=== PATIENT | female | born 1975 | race Caucasian/White ===

== ENCOUNTER 2016-05-18 00:35 | Emergency (ER) | payer MEDICARE, MEDICAID ==
--- NOTE | 2016-05-18 00:55 | EDPRACDOC ---
- General Information Chief Complaint: Chest Pain Stated Complaint: CHEST PAIN Time Seen by Provider: 05/18/16 00:47 Home Medications: Home Medications Acyclovir 800 mg PO DAILY 08/28/14 Acyclovir 800 mg PO 5XD #35 02/19/15 Albuterol Sulfate 1.25 mg NEB DIR PRN 02/19/15 Acyclovir 800 mg PO 5XD #35 tablet 09/23/15 Mouthwash [Magic Mouthwash] 5 ml PO Q6 #180 ml 09/23/15 Nebulizer [Erapid Nebulizer] 1 each MC .UNKNOWN 09/23/15 Nystatin 2 ml PO QID 09/23/15 Acyclovir 800 mg PO 5XD #35 tablet 03/17/16 Oxycodone Immediate Release [Oxycodone Immediate Release (OxyIR)] 5 mg PO Q6H PRN #14 tab 03/17/16 Fluconazole [Diflucan] 150 mg PO DAILY #3 tab 05/18/16 Hydrocodone Bit/Acetaminophen [Hydrocodon-Acetaminophen 5-325] 1 tab PO Q6 PRN # 15 tab 05/18/16 Allergies/Adverse Reactions: Allergies Allergy/AdvReac Type Severity Reaction Status Date / Time carisoprodol [From Soma] Allergy Severe See Verified 09/23/15 19:08 Comments codeine Allergy Severe See Verified 09/23/15 19:08 Comments morphine Allergy Severe Hives* Verified 09/23/15 19:08 Penicillins Allergy Severe Hives* Verified 09/23/15 19:08 egg Allergy See Verified 09/23/15 19:08 Comments prednisone Allergy See Verified 09/23/15 19:08 Comments - History of Present Illness Onset: "EARLIER TODAY" HPI: PT STATES THAT SHE NOTICED "PAIN" IN HER THROAT AFTER USING BREO INHALER EARLIER TODAY, STATES THAT WHEN SHE WENT TO BED SHE DEVELOPED PRESSURE PAIN IN HER ANTERIOR CHEST, RADIATING TO HER NECK AND ACROSS TO HER ARM, STATES PAIN IS WORSE WITH BREATHING, STATES FEELS LIKE HER THROAT IS "CLOSING UP" WHEN SHE TRIES TO BREATH, NO PERSONAL HX OF CAD, HAS NEVER HAD A STRESS TEST OR HEART CATH. Chest Pain Location: Reports: Substernal, Left Chest Pain Radiation: Reports: Neck Symptoms Occur: Reports: Suddenly, At Rest Cardiac Risk Factors: Reports: Smoker, Family History Cardiac History of: Reports: None PE Risk Factors: Reports: None Medications within 24 Hours: Reports: None Prehospital Care: Reports: None Pain Came On: Reports: Suddenly Pain Status: Present Now Pain Description: Reports: Pressure Pain Severity: Severe Pain Worsens With: Reports: Breathing, Movement Pain Improves With: Reports: Nothing Associated Signs and Symptoms: Reports: SOB. Denies: Palpitations, Diaphoretic , Abdominal Pain, Nausea, Vomiting, Calf Pain or Swelling, Chest Rash ED Past Medical History - History Reviewed Yes Nurses notes reviewed and agree except as marked - Patient Medical History Respiratory History: Reports: COPD Psychological History: Denies: Depression Systemic History: Reports: Diabetes Additional Past Medical History: SCOLIOSIS, BILATERAL FOOT DROP Surgical History: Reports: Other (BTL) - Social Medical History Smoking Status: Heavy tobacco smoker (5 or more cigarettes/day or daily pipe/ cigar) ETOH: None Substance Abuse: None EDM Review of Systems - Review of Systems Constitutional: negative: Chills, Fever Eyes: negative: Blurred Vision, Double Vision Ears: negative: Drainage Throat: Pain Nose: negative: Congestion, Discharge Respiratory: Shortness of Breath. negative: Cough, Wheezing Cardiovascular: Chest Pain. negative: Palpitations Gastrointestinal: negative: Diarrhea, Nausea, Pain, Vomiting Genitourinary: negative: Dysuria, Frequency Neurological: negative: Dizziness, Headache, Numbness, Weakness Musculoskeletal: No Symptoms Reported Integumentary: No Symptoms Reported - Physical Exam Constitutional: Alert (Awake), No apparent distress Oriented to: Time, Person, Place Last recorded Vital Signs: Oxygen Pulse Oxygen Saturation O2 Device Oxygen Flow Rate Fraction of Inspired Oxygen ( FIO2) - HEENT Head: Normal ( normocephalic) Eye Exam: Normal (PERRL, EOMI, Sclera white) Oropharynx: Normal (Pharynx:Moist without exudate,Gums-no swelling) Tympanic Membrane: Normal ENT EAC: Normal TMJ: Normal Nose: No Symptoms Reported (septum midline) Neck: Normal (FROM, trachea at midline) - Respiratory/Cardiovascular Respiratory: Normal - CTA (BBS clear to auscultation without adventitious sounds ) Cardiovascular: Normal (RRR without murmur, gallop or rub) - GI Auscultation: Normal (NABS) Palpation: Normal (Soft,No rebound or guarding, non distended) Tenderness: Non tender Vergara's Sign: Negative - Musculoskeletal Back: Normal (Non-Tender) Extremities: Normal (Normal tone, Pulses 2+ No cyanosis or edema, FROM) - Integumentary Skin: Normal, Warm, Dry Lymphatics: Normal (no adenopathy) - Neurologic Memory Impaired: Normal Motor Function: Normal (Normal tone, Pulses 2+ No cyanosis or edema, FROM) Cranial Nerve: Normal (CN II-X11 intact sensation, strength 5/5) Cerebellar: Normal Mood Description: Normal Perception: Normal ED Chest Pain Exam - Respiratory/Cardiovascular Respiratory: Normal - CTA Cardiovascular/Chest: Normal Radial Pulse: Normal Carotid Arteries: Normal Edema: negative: 1+, 2+, 3+, 4+, 5, 6 Chest Palpation: Normal - Differential Diagnosis Chest wall pain, CHF, Costochondritis, Gastritis, Pericarditis, Pancreatitis - Action Patient received Aspirin within last 24 hours?: No ASA given in the ED: No Aspirin therapy held due to: Other-specify below* (NOT INDICATED) Patient received Beta Syeda within last 24hrs: No Beta Syeda held due to: Other-specify below* (NOT INDICATED) - Re-evaluation Re-evaluation 1 Re-evaluation Time: 02:17 (FEELS BETTER BUT CONTINUES TO COMPLAIN OF PAIN IN HER THROAT AND CHEST WITH BREATHING.) - Results 05/18/16 01:40 05/18/16 01:40 05/18/16 02:57 Laboratory Results - last 24 hr 05/18/16 05/18/16 05/18/16 01:40 01:40 01:40 WBC 26.0 H RBC 4.96 Hgb 13.4 Hct 41.6 MCV 84 MCH 27.0 MCHC 32.2 L RDW 18.6 H Plt Count 469 H MPV 8.0 Neut % (Auto) Cancelled Lymph % (Auto) Cancelled [place] % (Auto) Cancelled Eos % (Auto) Cancelled Baso % (Auto) Cancelled Absolute Neuts (auto) Cancelled Absolute Lymphs (auto) Cancelled Seg Neuts % (Manual) 79 H Band Neutrophils % 2 Lymphocytes % (Manual) 13 L Monocytes % (Manual) 5 Eosinophils % (Manual) 1 Absolute Neutrophils 21.06 H Absolute Lymphocytes 3.38 Platelet Estimate Inc RBC Morphology 1+ aniso PT 10.0 INR 1.0 APTT 27.1 D-Dimer Quant (PE/DVT) Sodium 140 Potassium 3.7 Chloride 102 Carbon Dioxide 26 Anion Gap 16 BUN 13 Creatinine 0.50 L Estimated GFR (MDRD) > 60 Glucose 105 H Calculated Osmolality 269 L Calcium 9.4 Total Bilirubin 0.6 AST 21 ALT 26 Alkaline Phosphatase 101 Troponin I < 0.01 Ujk-[id number]-[id number] Pept 48 Total Protein 7.8 Albumin 4.4 Lipase 44 05/18/16 01:40 WBC RBC Hgb Hct MCV MCH MCHC RDW Plt Count MPV Neut % (Auto) Lymph % (Auto) [place] % (Auto) Eos % (Auto) Baso % (Auto) Absolute Neuts (auto) Absolute Lymphs (auto) Seg Neuts % (Manual) Band Neutrophils % Lymphocytes % (Manual) Monocytes % (Manual) Eosinophils % (Manual) Absolute Neutrophils Absolute Lymphocytes Platelet Estimate RBC Morphology PT INR APTT D-Dimer Quant (PE/DVT) 366 Sodium Potassium Chloride Carbon Dioxide Anion Gap BUN Creatinine Estimated GFR (MDRD) Glucose Calculated Osmolality Calcium Total Bilirubin AST ALT Alkaline Phosphatase Troponin I Iao-D-Lahijrfwzxp Pept Total Protein Albumin Lipase - EKG EKG #1 EKG Time: 00:44 -: Yes EKG interpreted by me Rate: bpm: 88 [place]: Normal Rhythm: NSR Block: None Hypertrophy: None ST: Nonsp Comments: NO OLD EKG FOR COMPARISON - Diagnostic Imaging CXR Image interpreted by: Radiologist PORTABLE CHEST 1 VIEW COMPARISON: Chest radiograph performed 02/19/2015 FINDINGS: The lungs are mildly hypoexpanded but appear grossly clear. There is no evidence of focal opacification, pleural effusion or pneumothorax. The cardiomediastinal silhouette is borderline enlarged. No acute osseous abnormalities are seen. IMPRESSION: Lungs mildly hypoexpanded but grossly clear. Borderline cardiomegaly. - Additional Information OLD CHART REVIEWED, PT HAS HX OF PREVIOUS LEUKOCYTOSIS. Decision Time to Discharge: 02:57 - Departure Disposition: Home Condition: Stable Final Diagnosis: Atypical chest pain Instructions: Chest Pain (ED) Education/Counseling Given To: Patient Education/Counseling Given Regarding: Diagnosis, Treatment, Prognosis, Follow Up Referrals: None,No Provider [Primary Care Provider] - One Week Prescriptions: New Fluconazole [Diflucan] 150 mg PO DAILY #3 tab Hydrocodone Bit/Acetaminophen [Hydrocodon-Acetaminophen 5-325] 1 tab PO Q6 PRN #15 tab PRN Reason: Pain No Action Acyclovir 800 mg PO DAILY Albuterol Sulfate 1.25 mg NEB DIR PRN PRN Reason: Wheezing Acyclovir 800 mg PO 5XD #35 Nystatin 2 ml PO QID Nebulizer [Erapid Nebulizer] 1 each MC .UNKNOWN Acyclovir 800 mg PO 5XD #35 tablet Mouthwash [Magic Mouthwash] 5 ml PO Q6 #180 ml Acyclovir 800 mg PO 5XD #35 tablet Oxycodone Immediate Release [Oxycodone Immediate Release (OxyIR)] 5 mg PO Q6H PRN #14 tab PRN Reason: Pain Additional Instructions: RETURN TO THE ED FOR ANY WORSENING SYMPTOMS OR CONCERNS.
[2016-05-18] MEDS ORDERED: SODIUM CHLORIDE 0.9% 10 ML FLUSH FLUSH PRN (00:56)
[2016-05-18] MEDS ORDERED: HYDROmorphone 1 MG INJECTION IV ONE (00:56)
[2016-05-18] MEDS ORDERED: ONDANSETRON HCL 4 MG/2 ML VIAL IV ONE (00:56)
[2016-05-18 00:58] VITALS: TEMP 97.7; BMI 30.2
--- NOTE | 2016-05-18 01:48 | DIRPT ---
CLINICAL DATA: Acute onset of pain at the throat, and anterior chest pain. Initial encounter. EXAM: PORTABLE CHEST 1 VIEW COMPARISON: Chest radiograph performed 02/19/2015 FINDINGS: The lungs are mildly hypoexpanded but appear grossly clear. There is no evidence of focal opacification, pleural effusion or pneumothorax. The cardiomediastinal silhouette is borderline enlarged. No acute osseous abnormalities are seen. IMPRESSION: Lungs mildly hypoexpanded but grossly clear. Borderline cardiomegaly. Electronically Signed By: Roderick Dobbins M.D. On: 05/18/2016 01:46
[2016-05-18 02:15] LABS: BLOOD UREA NITROGEN 13 MG/DL (7-17); CALCIUM 9.4 MG/DL (8.4-10.2); CALCULATED OSMOLALITY 269 MOs/Kg (270-290); CHLORIDE 102 mEq/L (98-107); GLUCOSE 105 MG/DL (70-99); SODIUM LEVEL 140 mEq/L (137-146); TOTAL PROTEIN 7.8 G/DL (6.3-8.2)
[2016-05-18] MEDS ORDERED: GI COCKTAIL 30 ML DOSE PO ONE (02:17)
[2016-05-18 02:23] LABS: PARTIAL THROMB. TIME 27.1 SEC (22-35)
[2016-05-18 02:26] LABS: SEG NEUTROPHIL 79 % (45-76)
[2016-05-18 05:03] VITALS: BP 122/67; PULSE 88
== END 2016-05-18 04:30 | disposition home or self-care (01) ==
LOC: ED 00:35
DX: R07.89 Other chest pain (principal)
CPT/HCPCS: 36415; 71010; 80053; 83690; 83880; 84484; 85007; 85027; 85379; 85610; 85730; 93005; 96374; 96375; 99283; A9270; J1170; J2405; J3490